=== PATIENT | male | born 1975 | race Caucasian/White ===

== ENCOUNTER 2021-11-12 02:49 | Emergency (ER) | payer BC, OTHER ==
[~2021-11-12] VITALS: Ht 182.9 cm; Wt 79.4 kg
[2021-11-12 02:54] VITALS: BP 126/80
--- NOTE | 2021-11-12 09:48 | EKG ---
[address] [address] ELECTROCARDIOGRAM REPORT Name: ALBERTOPRAFUL Room #: DEP [facility]ENTERHeladioHeladio#: [id number] Admission: 11/12/21 Attend Phys: Discharge: 11/12/21 Date of : 77 Report #: [id number] [facility] ED Test Date: 2021-11-12 Test Time: 03:08:27 Pat Name: PRAFUL DOMINGUEZ Department: Room: Gender: Supervisor Filtration: : 1975 Requested By: Jeffrey Benjamin Order Number: [id number] MD: Gavin Miranda Measurements Intervals [place] Rate: 87 P: 61 MI: 156 QRS: 66 QRSD: 94 T: 13 QT: 352 QTc: 424 Interpretive Statements Sinus rhythm ST elev, probable normal early repol pattern No previous ECG available for comparison Electronically Signed On 11-12-2021 9:48:31 QUILL REAMER by Gavin Miranda [email or web address] <ELECTRONICALLY SIGNED> By: Gavin Miranda MD 11/12/21 [id number] Gavin Miranda MD /EPI
== END 2021-11-12 03:48 | disposition home or self-care (01) ==
LOC: ER 02:49
DX: S01.01XA Laceration without foreign body of scalp, initial encounter (principal); S01.81XA Laceration without foreign body of other part of head, initial encounter; W19.XXXA Unspecified fall, initial encounter; Y93.89 Activity, other specified; Y92.89 Other specified places as the place of occurrence of the external cause; Y99.8 Other external cause status